=== PATIENT | female | born 1975 | race Caucasian/White ===

== ENCOUNTER 2016-07-22 18:49 | Emergency (ER) | payer OTHER ==
[~2016-07-22] VITALS: Ht 152.4 cm; Wt 66.0 kg
[2016-07-22 18:56] VITALS: BP 141/90; PULSE 100; RESP 16; TEMP 98.5; O2SAT 100
[2016-07-22] MEDS ORDERED: SODIUM CHLORIDE 0.9% FLUSH 5 ML FLUSH IVF PRN (19:15)
[2016-07-22] MEDS ORDERED: SODIUM CHLOR 0.9% 1000 ML INJ 1,000 ML IV SCH (19:15)
[2016-07-22] MEDS ORDERED: LISI10TA3 PO (19:22)
[2016-07-22] MEDS ORDERED: METF850T PO (19:22)
[2016-07-22 19:26] VITALS: RESP 18; O2SAT 100
[2016-07-22] MEDS ORDERED: ONDANSETRON HCL 4 MG/2 ML VIAL IV PUSH ONE (19:30)
[2016-07-22 20:01] LABS: BLOOD, URINE NEG (NEG); GLUCOSE,URINE NEG (NEG); KETONE, URINE NEG (NEG); NITRITE,URINE NEG (NEG)
[2016-07-22 20:07] LABS: AUTOMATED NEUTROPHIL # 6.9 TH/MM3 (1.8-7.7); BASOPHIL % 0.3 % (0.0-2.0); CHLORIDE 106 MEQ/L (98-107); EOSINOPHIL # 0.2 TH/MM3 (0-0.4); EOSINOPHIL % 1.6 % (0.0-4.0); HEMATOCRIT 40.5 % (35.0-46.0); HEMO FLAGS DIFF FINAL; LYMPH % 31.1 % (9.0-44.0); LYMPHOCYTE # 3.5 TH/MM3 (1.0-4.8); MEAN CORPUSCULAR HEMOGLOBIN 30.8 PG (27.0-34.0); PLATELET COUNT 314 TH/MM3 (150-450); POTASSIUM 3.7 MEQ/L (3.5-5.1); RED BLOOD COUNT 4.61 MIL/MM3 (4.00-5.30); SODIUM (NA) 140 MEQ/L (136-145); WHITE BLOOD COUNT 11.4 TH/MM3 (4.0-11.0)
[2016-07-22 20:10] LABS: ANION GAP 8 MEQ/L (5-15); BICARBONATE 26.4 MEQ/L (21.0-32.0)
[2016-07-22 20:11] LABS: BLOOD UREA NITROGEN 14 MG/DL (7-18)
[2016-07-22 20:13] LABS: ALT (GPT) 24 U/L (10-53); AST (GOT) 8 U/L (15-37)
[2016-07-22 20:14] LABS: GLOMERULAR FILTRATION RATE 89 ML/MIN (>89)
[2016-07-22 20:15] LABS: TOTAL BILIRUBIN ADULT 0.3 MG/DL (0.2-1.0)
[2016-07-22 20:16] LABS: ALKALINE PHOSPHATASE 74 U/L (45-117)
[2016-07-22 20:28] LABS: URINE COLOR YELLOW (YELLW/STRAW)
[2016-07-22 20:29] LABS: RBC, URINE 0-3 /hpf (0-3); SQUAMOUS EPITHELIAL CELL URINE 0-5 /hpf (0-5); WBC, URINE 0-2 /hpf (0-5)
[2016-07-22 20:30] LABS: COMMENT (UR) CULT NOT INDICATED; CULTURE IF INDICATED CULT NOT INDICATED
[2016-07-22 20:45] VITALS: BP 125/47; PULSE 81; RESP 18; O2SAT 99
[2016-07-22] MEDS ORDERED: IOHEXOL 350 MG/ML 10 ML VIAL (for RAD DIAG) IV ONE (21:09)
[2016-07-22] MEDS ORDERED: KETOROLAC TROMETHAMINE 30 MG/ML (IVP) VIAL IV PUSH ONE (21:30)
--- NOTE | 2016-07-22 21:40 | RADHPO ---
EXAM DATE/TIME: 07/22/2016 20:48 [place] COMPARISON: No previous studies available for comparison. INDICATIONS : Abdomen pain. IV CONTRAST: 91 cc Omnipaque 350 (iohexol) IV ORAL CONTRAST: No oral contrast ingested. RADIATION DOSE: 10.61 CTDIvol (mGy) MEDICAL HISTORY : Hypertension. Diabetes mellitus type 2. SURGICAL HISTORY : Tubal ligation. ENCOUNTER: Initial ACUITY: 1 day PAIN SCALE: 5/10 LOCATION: abdomen TECHNIQUE: Volumetric scanning of the abdomen and pelvis was performed. Using automated exposure control and ad justment of the mA and/or kV according to patient size, radiation dose was kept as low as reasonably achievable to obtain optimal diagnostic quality images. FINDINGS: No focal consolidation at the lung bases. Previous breast augmentation. Mild fatty liver. Spleen, adrenals, kidneys and pancreas unremarkable. No calcified gallstones or hubert iary ductal dilatation. Mild constipation. No free fluid. No bowel obstruction. No acute bony abnorma lity. CONCLUSION: 1. No acute findings on CT abdomen and pelvis. Mild constipation. Michael Wiggins MD on July 22, 2016 at 21:34 Board Certified Radiologist. This report was verified electronically.
[2016-07-22] MEDS ORDERED: BENT20TA PO (21:50)
--- NOTE | 2016-07-22 21:50 | PD ---
HPI Chief Complaint: Abdominal Pain Time Seen by Provider: 19:08 Travel History International Travel<30 days: No Contact w/Intl Traveler<30days: No Traveled to known affect area: No History of Present Illness HPI This 41-year-old female is complaining of mid abdominal pain. She says she's been having bouts of pain for several weeks. Usually happens after eating. They crampy pain which can be quite severe at times. He gets nauseated with the pain. Today she vomited once. She has not had any fever or chills. There has not been any diarrhea. PFSH Past Medical History Anxiety: Yes Cardiovascular Problems: Yes Diabetes: Yes (TYPE II) Patient Takes Glucophage: Yes Diminished Hearing: No Hypertension: Yes Immunizations Current: Yes Tetanus Vaccination: < 5 Years Influenza Vaccination: Yes ?: Not LMP: 07/07/16 Tubal Ligation: Yes Past Surgical History Thoracic Surgery: Yes (BREAST AUGMENTATION) Social History Alcohol Use: Yes (rarely, 6 BEERS TODAY (04/10/16)) Tobacco Use: Yes (3/4 PPD) Substance Use: No Allergies-Medications (Allergen,Severity, Reaction): Coded Allergies: No Known Allergies (Unverified , 07/22/16) Reported Meds & Prescriptions Reported Meds & Active Scripts Active Reported Metformin (Metformin HCl) 850 Mg Tab 750 Mg PO BIDPC With meals Review of Systems General / Constitutional: No: Fever, Chills Eyes: No: Diploplia HENT: No: Headaches Cardiovascular: No: Chest Pain or Discomfort, Palpitations Respiratory: No: Cough Gastrointestinal: Positive: Nausea, Abdominal Pain Genitourinary: No: Urgency, Frequency Musculoskeletal: No: Myalgias Neurologic: No: Weakness Endocrine: No: Heat Intolerance Hematologic/Lymphatic: No: Easy Bruising Physical Exam Narrative GENERAL: [-] SKIN: Warm and dry. HEAD: Atraumatic. Normocephalic. EYES: Pupils equal and round. No scleral icterus. No injection or drainage. ENT: No nasal bleeding or discharge. Mucous membranes pink and moist. NECK: Trachea midline. No JVD. CARDIOVASCULAR: Regular rate and rhythm. No murmur appreciated. RESPIRATORY: No accessory muscle use. Clear to auscultation. Breath sounds equal bilaterally. GASTROINTESTINAL: Abdomen soft, non-tender, nondistended. Hepatic and splenic margins not palpable. MUSCULOSKELETAL: No obvious deformities. No clubbing. No cyanosis. No edema. NEUROLOGICAL: Awake and alert. No obvious cranial nerve deficits. Motor grossly within normal limits. Normal speech. PSYCHIATRIC: Appropriate mood and affect; insight and judgment normal. Data Data Last Documented VS Vital Signs Date Time Temp Pulse Resp B/P Pulse Ox O2 Delivery O2 Flow Rate FiO2 07/22/16 20:45 81 18 125/47 99 Room Air 07/22/16 18:56 98.5 Orders Complete Blood Count With Diff (07/22/16 19:14) Comprehensive Metabolic Panel (07/22/16 19:14) Urinalysis - C+S If Indicated (07/22/16 19:14) Ct Abd/Pel W Iv Contrast(Rout) (07/22/16 19:14) Iv Access Insert/Monitor (07/22/16 19:14) Ecg Monitoring (07/22/16 19:14) Oximetry (07/22/16 19:14) Sodium Chloride 0.9% Flush (Ns Flush) (07/22/16 19:15) Sodium Chlor 0.9% 1000 Ml Inj (Ns 1000 M (07/22/16 19:15) Ondansetron Inj (Zofran Inj) (07/22/16 19:30) Iohexol 350 Inj (Omnipaque 350 Inj) (07/22/16 21:09) Ketorolac Inj (Toradol Inj) (07/22/16 21:30) Labs Laboratory Tests Test 07/22/16 07/22/16 19:35 19:40 Urine Color YELLOW Urine Turbidity CL Urine pH 6.0 Urine Specific [place] 1.033 Urine Protein NEG mg/dL Urine Glucose (UA) NEG mg/dL Urine Ketones NEG mg/dL Urine Occult Blood NEG Urine Nitrite NEG Urine Bilirubin NEG Urine Leukocyte Esterase NEG Urine RBC 0-3 /hpf Urine WBC 0-2 /hpf Urine Squamous Epithelial 0-5 /hpf Cells Urine Bacteria NONE /hpf Microscopic Urinalysis Comment CULT NOT INDICATED White Blood Count 11.4 TH/MM3 Red Blood Count 4.61 MIL/MM3 Hemoglobin 14.2 GM/DL Hematocrit 40.5 % Mean Corpuscular Volume 88.0 FL Mean Corpuscular Hemoglobin 30.8 PG Mean Corpuscular Hemoglobin 35.0 % Concent Red Cell Distribution Width 12.0 % Platelet Count 314 TH/MM3 Mean Platelet Volume 8.8 FL Neutrophils (%) (Auto) 60.0 % Lymphocytes (%) (Auto) 31.1 % Monocytes (%) (Auto) 7.0 % Eosinophils (%) (Auto) 1.6 % Basophils (%) (Auto) 0.3 % Neutrophils # (Auto) 6.9 TH/MM3 Lymphocytes # (Auto) 3.5 TH/MM3 Monocytes # (Auto) 0.8 TH/MM3 Eosinophils # (Auto) 0.2 TH/MM3 Basophils # (Auto) 0.0 TH/MM3 CBC Comment DIFF FINAL Differential Comment Sodium Level 140 MEQ/L Potassium Level 3.7 MEQ/L Chloride Level 106 MEQ/L Carbon Dioxide Level 26.4 MEQ/L Anion Gap 8 MEQ/L Blood Urea Nitrogen 14 MG/DL Creatinine 0.72 MG/DL Estimat Glomerular Filtration 89 ML/MIN Rate Random Glucose 105 MG/DL Calcium Level 8.5 MG/DL Total Bilirubin 0.3 MG/DL Aspartate Amino Transf 8 U/L (AST/SGOT) Alanine Aminotransferase 24 U/L (ALT/SGPT) Alkaline Phosphatase 74 U/L Total Protein 7.6 GM/DL Albumin 3.7 GM/DL [facility] Medical Decision Making Medical Screen Exam Complete: Yes Emergency Medical Condition: Yes Medical Record Reviewed: Yes Differential Diagnosis Differential includes Crohn's disease, colitis, IBS, Narrative Course Lab work and CT scan has been read as normal. I will offer a trial of Bentyl. I told her she should follow-up with GI Diagnosis Primary Impression: Abdominal pain Qualified Code: R10.84 - Generalized abdominal pain Scripts Dicyclomine (Bentyl)20 Mg Tab20 Mg PO TID #30 TAB Ref 0 Prov:Haris Mccullough MD 07/22/16 Disposition: 01 DISCHARGE HOME Condition: Stable Haris Mccullough MD Jul 22, 2016 21:50
[2016-07-22 22:27] VITALS: BP 104/75; RESP 18
== END 2016-07-22 22:31 | disposition home or self-care (01) ==
LOC: PHED 18:49
DX: R10.84 Generalized abdominal pain (principal); R11.2 Nausea with vomiting, unspecified; E11.9 Type 2 diabetes mellitus without complications; I10 Essential (primary) hypertension; F17.200 Nicotine dependence, unspecified, uncomplicated; Z79.84 Long term (current) use of oral hypoglycemic drugs; Z86.59 Personal history of other mental and behavioral disorders; Z86.79 Personal history of other diseases of the circulatory system
CPT/HCPCS: 74177; 80053; 81001; 85025; 96361; 96374; 96375; 99284; J1885; J2405; J7030; Q9967